=== PATIENT | female | born 1965 | race Caucasian/White ===

== ENCOUNTER 2018-01-30 23:17 | Emergency (ER) | payer MEDICAID, OTHER ==
[2018-01-31] MEDS: HYDROCODONE/APAP (5/325) TAB PO (00:09)
[2018-01-31] MEDS: ONDANSETRON (ODT) 4 MG TAB ODT (00:09)
== END 2018-01-31 01:50 | disposition home or self-care (01) ==
LOC: FTE 01-31 01:50
DX: R51 Headache (principal)
CPT/HCPCS: 70450; 99284-25